=== PATIENT | male | born 1955 | race Caucasian/White ===

== ENCOUNTER 2017-12-27 10:32 | Emergency (ER) | payer OTHER ==
[~2017-12-27] VITALS: Ht 175.3 cm; Wt 113.4 kg
[2017-12-27 10:54] VITALS: BP 174/87
== END 2017-12-27 11:15 | disposition short-term general hospital (02) ==
LOC: ER 10:32
DX: T79.A12A Traumatic compartment syndrome of left upper extremity, initial encounter (principal); X58.XXXA Exposure to other specified factors, initial encounter